=== PATIENT | male | born 1985 | race Caucasian/White ===

== ENCOUNTER → 2018-06-23 | Outpatient (CLI) | payer BC ==
--- NOTE | 2018-06-23 14:46 | KCIC ---
Complete abdominal ultrasound 06/23/2018 8:07 AM Clinical History: Epigastric pain COMPARISON STUDY: None Discussion: Ultrasound evaluation of the abdomen was performed. Static images are submitted to PACS. The pancreas is partially visualized. Visualized portions of the pancreas demonstrate no gross abnormality. Visualized portions of the aorta and IVC are unremarkable. The liver is normal in size measuring 16.8 cm longitudinally. Hepatic echotexture is normal. No intrahepatic biliary dilatation is seen. The portal venous flow is in the normal direction. The gallbladder is unremarkable in appearance without evidence of wall thickening, stones, or sludge. The common bile duct is normal in diameter at approximately 3 to 4 mm. Right kidney is normal in appearance measuring 11.4 cm in length. Left kidney is normal in appearance measuring 11.5 cm in length. The spleen is partially visualized. Spleen is top normal in size measuring approximately 12 cm longitudinally. IMPRESSION: 1. Top normal size spleen 2. Otherwise unremarkable abdominal ultrasound Electronically signed by: Chito Edwards MD (06/23/2018 2:43 PM) [id number]
== END | disposition home or self-care (01) ==
LOC: KCIC US 07:48
PROVIDERS: ATTEND Physician Assistant
DX: R10.13 Epigastric pain (principal)
CPT/HCPCS: 76700